=== PATIENT | male | born 1935 | race Caucasian/White ===

== ENCOUNTER 2016-05-09 16:18 | Inpatient (IN) | payer OTHER ==
[2016-05-09] MEDS ORDERED: OXYCODONE/APAP 5/325 TAB PO PRN (17:30)
[2016-05-09] MEDS ORDERED: SENNOSIDES 17.6 MG/10 ML UDL PO PRN (17:31)
[2016-05-09] MEDS: AMOXICILLIN/CLAVULANATE POT 875/125 MG TAB PO SCH (19:51)
[2016-05-09] MEDS: BACITRACIN OINTMENT 1 PACKET TP SCH (19:52)
[2016-05-09] MEDS: FAMOTIDINE 20 MG TAB PO SCH (19:52)
[2016-05-09] MEDS: MELATONIN 3 MG TAB PO SCH (19:52)
--- NOTE | 2016-05-09 20:31 | GHP ---
[f rep st] HISTORY AND PHYSICAL DATE OF ADMISSION: 05/09/2016 Referring Physician: Dr. Del Cid TIME OF EVALUATION: 1740 REFERRING FACILITY: [facility] CONSULTING PHYSICIANS: There were consultations with Trauma Surgery, Neurosurgery, Intensive Care, and Otolaryngology. REHABILITATION DIAGNOSIS: Debility status post fall with C1 and C2 cervical fractures and a nasal fracture. IMPAIRMENT GROUP: 8.9. ETIOLOGIC DIAGNOSIS: Other orthopedic. DATE OF ONSET: 05/05/2016 HISTORY OF PRESENT ILLNESS: Mr. Burnham tripped over a curb and fell on his face on 05/05/2016. He did not recall loss of consciousness. He was taken to [facility] where he was diagnosed with C1 and C2 cervical fractures, a nasal fracture, and multiple facial lacerations. He was evaluated by Neurosurgery and was treated with a cervical collar. His cervical fractures did not require surgery. In the hospital, he was found to have right hand weakness, but imaging did not show any cord compression. He had confusion and agitation, which improved with decrease of sedating medications. He had aspiration, and video fluoroscopic swallow study was done on 05/08, which was positive for moderate to severe dysphagia. Facial lacerations were sutured, and the sutures are to be removed on 05/11/2016. The cervical collar is to remain for 6 weeks. He is to follow up with neurosurgeon, Dr. Mann, after 6 weeks. Regarding his nasal fracture, he had evaluation by Otolaryngology. Oral antibiotics for 1 week were recommended, and he is to follow up with rn endocrinology, Dr. Kearney, in 1 week or approximately May 16, 2016. As well as delirium, he was noted to have difficulty with word finding, which has been a chronic problem for some time. OTHER STUDIES AND LABS DURING HIS HOSPITALIZATION: Renal function and electrolytes were within normal limits. Hematology showed a normal CBC on the date of admission, and the next day, 05/06/2016, he had mild anemia with a hemoglobin of 12.8 and hematocrit of 37.7. Additionally, there was thrombocytopenia with a platelet count of 141. Coagulation studies revealed a normal PT and PTT. PRECAUTIONS: He is a fall risk and he has aspiration precautions. ACTIVE COMORBIDITIES: He has the tier 2 comorbidity of dysphagia. Otherwise, there are no active tier 1, tier 2, or tier 3 comorbidities. PAST MEDICAL HISTORY: 1. Dementia. 2. Hypothyroidism. 3. Central and obstructive sleep apnea, for which he had been using it a CPAP machine for approximately 10 days prior to his accident. PAST SURGICAL HISTORY: He has had cataract surgery. MEDICATIONS: Prior to admission: 1. [place] Thyroid 45 mg daily. 2. Cognitex supplement containing phosphatidylserine. 3. Red yeast rice extract. 4. [place]-3 fatty acid supplement. 5. Niacin 750 mg p.o. daily. Admission medications: 1. [place] Thyroid 45 mg p.o. daily. 2. Amoxicillin/clavulanate 875 mg p.o. b.i.d. 3. Bacitracin ointment b.i.d. to sutured lacerations. 4. [place]-3 fatty acids 1000 mg p.o. daily. 5. Enoxaparin 40 mg subcutaneous daily. 6. Niacin 750 mg p.o. daily. 7. Famotidine 20 mg p.o. b.i.d. 8. Oxycodone/acetaminophen 1-2 tabs p.o. q.6 hours p.r.n. 9. Senna/docusate 1 p.o. b.i.d. p.r.n. ALLERGIES: No known drug allergies. FAMILY HISTORY: He reports that his father had Alzheimer disease. PSYCHOSOCIAL HISTORY: He is . He lives with his . 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 He is a nonsmoker and a nondrinker. He and his split their time between [place] and [facility] in [place]. REVIEW OF SYSTEMS: He reports he has some pain, but it is not particularly severe at present. He reports that he had approximately a 20-pound weight loss 2 years ago when he had shingles. He has gained some weight back but has not been able to get above 122 pounds. His previous weight was 138.He is perseverative on events that happened at the [facility] where he felt he was poorly cared for, and he reports that he had visual hallucinations of people who were not in the room. These were startling but not frightening or otherwise distressing. He was aware that these people he was seeing were not really there. He currently is not experiencing visual hallucinations. He reports that he is hungry. He denies nausea, vomiting, constipation, or diarrhea. He reports that he was over-treated with a laxative and then did not get attention from nursing soon enough to transfer him to the bathroom, and he was upset about this. He denies cough or dyspnea. He denies chest pain or palpitations. He denies skin rash or skin breakdown. He denies joint pain or joint swelling. Other than that, a 10-point review of systems is negative. PHYSICAL EXAM: VITAL SIGNS: From this morning and in the acute care hospital, blood pressure was 131/61, heart rate 74, respiratory rate 16, oxygen saturation 96% on room air, temperature 36.8 degrees centigrade. His weight was 55.5 kg for a body mass index of 19.2. GENERAL: This is a thin elderly man who appears his chronologic age, cooperative and in no acute distress. HEENT: He has had obvious trauma to the bridge of his nose with leftward deviation. He has several eschars and sutured lacerations on his face. Extraocular movements are intact. He has anisocoria on the right. Left pupil is round and reactive. Mucous membranes are moist. He has several missing teeth, but dentition is otherwise in good condition. NECK: In the cervical collar, otherwise appears to be supple. HEART: Regular rate and rhythm with no murmurs, rubs, or gallops. LUNGS: Clear to auscultation bilaterally. ABDOMEN: Soft, nontender, and nondistended with normoactive bowel sounds and no hepatosplenomegaly. EXTREMITIES: There is no cyanosis, clubbing, or edema. Radial and dorsalis pedis pulses are 2+ bilaterally. NEUROLOGIC: He is alert. He is oriented to his general situation and location. He is disoriented to the date, reporting today's date as March 27. He does not retain reorientation after some distraction. Speech is fluent, with word finding difficulties and hypophonation. Cranial nerves 2-12 are grossly intact. Sensation is intact to light touch. There is no weakness. Handgrips are equal. CURRENT LEVEL OF FUNCTION: Per the pre-admission screen, regarding diet, feeding, and swallowing, he was on a nectar-thick liquid diet to be fed liquids via teaspoon, limiting bite size, and monitoring for signs and symptoms of aspiration. Regarding grooming, he required assistance. For dressing, he required setup. For lower body, he required moderate assistance. For toileting , he required assistance. For bladder and bowel, he was noted to be continent. Regarding bed mobility, he required standby assistance with the head of the bed elevated. Transfers were accomplished with contact guard of 2 people using a gait belt for safety. He was minimally retropulsive requiring the assistance of 2 to remain standing. For balance, he required contact guard to minimal assistance. Endurance was fair. He was able to ambulate 700 feet with contact guard to minimal assistance of 2 using no device, needed verbal cuing to slow down. He had loss of balance on turns requiring minimal assistance of 2 and verbal cues to scan the environment to locate his room. He was unable to locate his room without maximal assistance. Regarding communication, he was noted to have garbled speech and decreased phonation. Cognition was impaired in the areas of attention, concentration, insight and judgment, new learning, safety awareness, sequencing, and organization. Occupational Therapy found a large left visual field cut. ASSESSMENT AND PLAN: The patient is an 80-year-old man with pre-existing dementia and sleep apnea who suffered a fall on 05/05/2016 with a nasal fracture and fractures of cervical vertebrae, C1 and C2. The cervical fractures are being treated with a hard cervical collar for 6 weeks. Regarding the nasal fracture, he is to follow up with Otolaryngology to consider further treatment after another week to allow swelling to go down. His hospital course was complicated by pain and delirium. He has been stabilized and has had improvement in his delirium with reduction of sedating medications. He is appropriate for inpatient rehabilitation. He will benefit from physical and occupational therapy to optimize his mobility and independence with activities of daily living. He will benefit from speech and language pathology regarding dysphagia and aspiration and regarding his cognitive status. Additionally, he will need nursing care regarding wound healing, pain management , bowel and bladder, and fall risk, and medical care regarding pain management, encephalopathy, risk for aspiration pneumonia, anemia, and deep venous thrombosis prophylaxis. His goal is to go home with his and supportive services. For a safe discharge, he will need to achieve independence with eating, grooming, and bed mobility. He will need to have modified independence for transfers and supervision to modified independence level for bathing and dressing. He will need to be able to ambulate household distances with the least restrictive device and negotiate stairs with supervision. His diet will be advanced to the least restrictive diet. He will receive therapy with physical therapy, occupational therapy, and speech and language pathology for 1 hour per day for each discipline on 5-7 days per week. His expected duration of stay is 7-10 days. It is anticipated that after discharge he will likely continue to benefit from home health services, including occupational therapy and physical therapy. ASSESSMENT AND PLAN: 1. Debility status post fall with C1 and C2 cervical fractures and a nasal fracture. Physical and occupational therapy to optimize his mobility and activities of daily living. 2. Underlying dementia and delirium in the hospital, as well as dysphagia, to be assessed and treated by Speech and Language Pathology. 3. Pain management. Continue oxycodone/acetaminophen. Will increase the frequency from q.6 hours as ordered out of the hospital to q.4 hours on an as- needed basis. He will be assessed for adequate pain control. 4. Status post nasal fracture. He has been prescribed amoxicillin/clavulanate , which will be continued through May 14, 2016, and he will follow up with Otolaryngology in the first week of May. 5. Nutritional risk, due to dysphagia. His diet is restricted to nectar-thick liquids by teaspoon only. Counter Attendant will be consulted and he will be weighed daily. Hydration status will be monitored with consideration of IV hydration should he appear dehydrated. 6. Central and obstructive sleep apnea. He cannot use a CPAP mask with his nasal fracture. He will have oxygen overnight. 7. Hypothyroidism. Continue [place] Thyroid. 8. Deep venous thrombosis prophylaxis. He is high risk, and enoxaparin subcutaneous 40 mg daily will be continued. /[id number]/MODL MTDD
[2016-05-10] MEDS: OXYCODONE/APAP 5/325 TAB PO PRN ×3 (02:47→20:19)
[2016-05-10] MEDS: AMOXICILLIN/CLAVULANATE POT 875/125 MG TAB PO SCH ×2 (08:34→20:17)
[2016-05-10] MEDS: FAMOTIDINE 20 MG TAB PO SCH ×2 (08:35→20:18)
[2016-05-10] MEDS: NIACIN 500 MG TAB PO SCH (08:38)
[2016-05-10] MEDS: ENOXAPARIN 40 MG/0.4 ML SYR SC SCH (08:43)
[2016-05-10] MEDS: BACITRACIN OINTMENT 1 PACKET TP SCH ×2 (08:43→20:18)
[2016-05-10] MEDS: OMEGA-3 FATTY ACIDS 1,000 MG CAP PO SCH (08:43)
--- NOTE | 2016-05-10 08:50 | SOAPPROG ---
SOAP Progress Note Assessment/Plan: Assessment: 80 yo M with dementia who tripped over a curb and fell, suffering facial lacerations and fractures, and C1 and C2 cervical fractures, in hard cervical collar for 6 weeks: * Debility status post fall with C1 and C2 cervical fractures and a nasal fracture. Physical and occupational therapy to optimize his mobility and activities of daily living. * Underlying dementia and delirium in the hospital. Slept overnight; continue melatonin to regulate sleep-wake cycle. Continues to need sitter. Impulsive and disinhibited, with paranoia. Will strive to avoid medication ( anticonvulsant or antipsychotic) due to adverse side effects. Await assessment by CLIP RIVETER. * Dysphagia, severe, with diet texture limited to nectar-thick liquids my teaspoon. To be assessed and treated by Speech and Language Pathology. * Pain management. Continue oxycodone/acetaminophen q.4 hours on an as-needed basis. Used once overnight 05/09 - 05/10. Will add acetaminophen 650 mg Q 4 hr PRN for non-opiate option. * Status post nasal fracture. He has been prescribed amoxicillin/clavulanate, which will be continued through May 14, 2016, and he will follow up with Otolaryngology in the first week of May. * Nutritional risk. Due to dysphagia, his diet is restricted to nectar-thick liquids by teaspoon only. Automatic Steel Tie Adjuster will be consulted and he will be weighed daily. Hydration status will be monitored with consideration of IV hydration should he appear dehydrated. * Central and obstructive sleep apnea. He cannot use a CPAP mask with his nasal fracture. He will have oxygen overnight. * Hypothyroidism. Continue [place] Thyroid. * Deep venous thrombosis prophylaxis. He is high risk, and enoxaparin subcutaneous 40 mg daily will be continued. Follow-up with Neurosurgeon Dr. Mann 6 weeks after hospital discharge. approximately 06/20/16. PCP is Krystal Mclaughlin 05/10/16 09:57 Subjective: Slept most of the night but was awake at 0300 and called . Denies pain. No acute complaints but expresses paranoid ideation and is not clear that he is no longer at [facility] where he feels he was not treated well. Objective: Vital Signs Temp Pulse Resp BP Pulse Ox 36.4 C 64 16 130/77 H 96 05/10/16 07:28 05/10/16 07:28 05/10/16 07:28 05/10/16 07:28 05/10/16 07:28 05/09/16 05/10/16 05/11/16 05:59 05:59 05:59 Intake Total 170 240 Output Total 250 Balance -80 240 Physical Exam - Physical Exam General Appearance: WD/WN, alert, no apparent distress, thin Respiratory: normal breath sounds, No crackles, No rhonchi, No wheezing Cardiac/Chest: regular rate, rhythm, No edema Skin: normal color, warm/dry, other (Facial lacerations with eschar; sutures present, no dehiscence, erythema or drainage.) Neuro/Psych: no motor/sensory deficits, alert, disoriented to place, disoriented to time, other (Disinhibited and mildly agitated.) ICD10 Worksheet Patient Problems: Problems Problem Status Diagnosed C1 cervical fracture Acute C2 cervical fracture Acute Facial laceration Acute Fall Acute Open fracture nasal bone Acute
[2016-05-10] MEDS ORDERED: ACETAMINOPHEN 160 MG/5 ML UDCUP PO PRN ×2 (10:05→12:20)
[2016-05-10] MEDS: THYROID 60 MG TAB PO SCH (11:10)
[2016-05-10] MEDS: MELATONIN 3 MG TAB PO SCH (20:18)
[2016-05-11] MEDS: OXYCODONE/APAP 5/325 TAB PO PRN (02:49)
[2016-05-11] MEDS: AMOXICILLIN/CLAVULANATE POT 875/125 MG TAB PO SCH ×2 (08:28→21:14)
[2016-05-11] MEDS: OMEGA-3 FATTY ACIDS 1,000 MG CAP PO SCH (08:28)
[2016-05-11] MEDS: FAMOTIDINE 20 MG TAB PO SCH ×2 (08:32→21:13)
[2016-05-11] MEDS: NIACIN 500 MG TAB PO SCH (08:36)
[2016-05-11] MEDS: BACITRACIN OINTMENT 1 PACKET TP SCH ×2 (08:42→21:13)
[2016-05-11] MEDS: ENOXAPARIN 40 MG/0.4 ML SYR SC SCH (08:42)
[2016-05-11] MEDS: THYROID 60 MG TAB PO SCH (11:31)
--- NOTE | 2016-05-11 11:48 | SOAPPROG ---
SOAP Progress Note Assessment/Plan: Assessment: 80 yo M with dementia who tripped over a curb and fell, suffering facial lacerations/fractures, and C1-C2 cervical fractures, in hard cervical collar for 6 weeks: * Debility status post fall with C1 and C2 cervical fractures and a nasal fracture. Physical and occupational therapy to optimize his mobility and activities of daily living. * Underlying dementia and delirium in the hospital. Improving with decreased pain meds. Has wokenup at 3am for past 2 nights. denies pain. Admits to awarness of confusion. continue melatonin to regulate sleep-wake cycle. Continues to need sitter. Impulsive and disinhibited, with paranoia. Will strive to avoid medication (anticonvulsant or antipsychotic) due to adverse side effects. Await assessment by PRIMER CHARGER. * Dysphagia, severe, cont Speech and Language Pathology. * Pain management. Continue oxycodone/acetaminophen q.4 hours on an as-needed basis. Used once overnight 05/09 - 05/10, yet did not prevent sundowning. Will add acetaminophen 650 mg Q 4 hr PRN for non-opiate option. * Status post nasal fracture. He has been prescribed amoxicillin/clavulanate, which will be continued through May 14, 2016, follow up with Otolaryngology first week of May. * Nutritional risk. Due to dysphagia, his diet is restricted to nectar-thick liquids by teaspoon only. Tabulating Machine Mechanic will be consulted and he will be weighed daily. Hydration status will be monitored with consideration of IV hydration should he appear dehydrated. * Central and obstructive sleep apnea. He cannot use a CPAP mask with his nasal fracture. Cont oxygen overnight. * Hypothyroidism. Continue [place] Thyroid. * Deep venous thrombosis prophylaxis. at high risk, cont enoxaparin subcutaneous 40 mg daily. Follow-up with Neurosurgeon Dr. Mann 6 weeks after hospital discharge. approximately 06/20/16. PCP is Krystal Mclaughlin Plan: Cont Dr Broussard rehab treatment plan 05/11/16 11:44 Subjective: No new problems or C/O's per patient reports he is less confused and speech ;and language are clearer over past day. No F/C/CP/SOB/N/V/D/C Objective: Vital Signs Temp Pulse Resp BP Pulse Ox 36.8 C 55 L 16 143/85 H 97 05/11/16 07:13 05/11/16 07:30 05/11/16 07:13 05/11/16 07:13 05/11/16 07:13 05/10/16 05/11/16 05/12/16 05:59 05:59 05:59 Intake Total 170 1430 200 Output Total 250 Balance -80 1430 200 Physical Exam - Physical Exam General Appearance: alert, no apparent distress Neck: limited range of motion (in C-collar, will try Small Short collar for better fit) Respiratory: lungs clear Cardiac/Chest: regular rate, rhythm Skin: normal color, warm/dry, decubitus (no breakdown from c-collar) Extremities: No pedal edema, No calf tenderness Neuro/Psych: alert, cognition abnormalities (slow processing, severe word finding difficulties, good sense of humor.), other (no acute changes) ICD10 Worksheet Patient Problems: Problems Problem Status Diagnosed C1 cervical fracture Acute C2 cervical fracture Acute Facial laceration Acute Fall Acute Open fracture nasal bone Acute
[2016-05-11] MEDS ORDERED: ACETAMINOPHEN 325 MG TAB PO PRN (15:22)
[2016-05-11] MEDS: MELATONIN 3 MG TAB PO SCH (21:13)
[2016-05-12] MEDS: OXYCODONE/APAP 5/325 TAB PO PRN (02:53)
[2016-05-12] MEDS: AMOXICILLIN/CLAVULANATE POT 875/125 MG TAB PO SCH ×2 (08:53→20:35)
[2016-05-12] MEDS: FAMOTIDINE 20 MG TAB PO SCH ×2 (08:54→20:35)
[2016-05-12] MEDS: NIACIN 500 MG TAB PO SCH (08:57)
[2016-05-12] MEDS: OMEGA-3 FATTY ACIDS 1,000 MG CAP PO SCH (09:04)
[2016-05-12] MEDS: ENOXAPARIN 40 MG/0.4 ML SYR SC SCH (10:39)
[2016-05-12] MEDS: THYROID 60 MG TAB PO SCH (10:41)
[2016-05-12] MEDS: BACITRACIN OINTMENT 1 PACKET TP SCH ×2 (10:41→20:35)
--- NOTE | 2016-05-12 11:10 | SOAPPROG ---
SOAP Progress Note Assessment/Plan: Assessment: 80 yo M with dementia who tripped over a curb and fell, suffering facial lacerations/fractures, and C1-C2 cervical fractures, in hard cervical collar for 6 weeks: * Debility status post fall with C1 and C2 cervical fractures and a nasal fracture. Physical and occupational therapy to optimize his mobility and activities of daily living. * Underlying dementia and delirium in the hospital. Continuing to improve daily with decreased pain meds. Awakens at HS to toilet, and notably confused, He admits to awareness of confusion, but denies pain. continue melatonin to regulate sleep-wake cycle. Continues to need sitter. Impulsivity and disinhibited, with paranoia are improving. Cont to strive to avoid medication ( anticonvulsant or antipsychotic) due to adverse side effects. Await assessment by REINFORCED STEEL PLACING SUPERVISOR. * Dysphagia, severe, cont Speech and Language Pathology. * Pain management. Continue oxycodone/acetaminophen q.4 hours on an as-needed basis. Used once overnight 05/09 - 05/10, yet did not prevent owning. Will add acetaminophen 650 mg Q 4 hr PRN for non-opiate option. * Status post nasal fracture. He has been prescribed amoxicillin/clavulanate, which will be continued through May 14, 2016, follow up with Otolaryngology first week of May. * Nutritional risk. Due to dysphagia, his diet is restricted to nectar-thick liquids by teaspoon only. Powerbuilder will be consulted and he will be weighed daily. Hydration status will be monitored with consideration of IV hydration should he appear dehydrated. * Central and obstructive sleep apnea. He cannot use a CPAP mask with his nasal fracture. Cont oxygen overnight. * Hypothyroidism. Continue [place] Thyroid. * Deep venous thrombosis prophylaxis. at high risk, cont enoxaparin subcutaneous 40 mg daily. Follow-up with Neurosurgeon Dr. Mann 6 weeks after hospital discharge. approximately 06/20/16. PCP is Krystal Mclaughlin Plan: Cont Dr Broussard rehab treatment plan 05/12/16 11:06 Subjective: No new problems or C/O's Medically stable, VSS No F/C/CP/SOB/N/V/D/C Slept better last night Still with language of confusion, word finding difficulties and slow processing speed, yet noticeably better than yesterday Objective: Vital Signs Temp Pulse Resp BP Pulse Ox 36.7 C 65 16 146/77 H 94 05/12/16 06:27 05/12/16 06:27 05/12/16 06:27 05/12/16 06:27 05/12/16 06:27 05/11/16 05/12/16 05/13/16 05:59 05:59 05:59 Intake Total 1430 1160 708 Balance 1430 1160 708 Physical Exam - Physical Exam General Appearance: alert, no apparent distress Neck: limited range of motion (c-collar) Respiratory: lungs clear Cardiac/Chest: regular rate, rhythm Skin: normal color, warm/dry Extremities: No pedal edema, No calf tenderness Neuro/Psych: alert, normal mood/affect, motor weakness, cognition abnormalities , speech abnormalities, other (no gross changes) ICD10 Worksheet Patient Problems: Problems Problem Status Diagnosed C1 cervical fracture Acute C2 cervical fracture Acute Facial laceration Acute Fall Acute Open fracture nasal bone Acute
[2016-05-12] MEDS: NYSTATIN SUSP 500000 UNIT/5 ML UDCUP PO SCH ×2 (16:49→20:59)
[2016-05-12] MEDS: MELATONIN 3 MG TAB PO SCH (20:35)
[2016-05-13] MEDS: ENOXAPARIN 40 MG/0.4 ML SYR SC SCH (09:19)
[2016-05-13] MEDS: AMOXICILLIN/CLAVULANATE POT 875/125 MG TAB PO SCH ×2 (09:19→20:44)
[2016-05-13] MEDS: BACITRACIN OINTMENT 1 PACKET TP SCH ×2 (09:19→20:51)
[2016-05-13] MEDS: FAMOTIDINE 20 MG TAB PO SCH ×2 (09:20→20:51)
[2016-05-13] MEDS: NIACIN 500 MG TAB PO SCH ×3 (09:20→20:50)
[2016-05-13] MEDS: OMEGA-3 FATTY ACIDS 1,000 MG CAP PO SCH (09:20)
[2016-05-13] MEDS: NYSTATIN SUSP 500000 UNIT/5 ML UDCUP PO SCH ×3 (09:20→20:50)
[2016-05-13] MEDS: THYROID 60 MG TAB PO SCH (09:21)
--- NOTE | 2016-05-13 15:56 | PDOREHIP ---
Admission [facility] - Admission - 3 Day Assessment Period Admission Date/Day 1: 05/09/16 Day 2: 05/10/16 Day 3: 05/11/16 - Active Diagnoses Comorbidities and Co-existing Conditions at Admission: [id number]. None of the Above - Skin Conditions Unhealed Pressure Ulcer (1 or more/Stage 1 or >)-Admission: 0. No
--- NOTE | 2016-05-13 16:03 | SOAPPROG ---
SOAP Progress Note Assessment/Plan: Assessment: 80 yo M with dementia who tripped over a curb and fell, suffering facial lacerations and fractures, and C1 and C2 cervical fractures, in hard cervical collar for 6 weeks: * Debility status post fall with C1 and C2 cervical fractures and a nasal fracture. Initial FIM 80 on 05/13/16. Walked 300' with trekkiing,poles, climbed 12 stairs, supervision level for ADLs except min A for toileting and bathing. Cues for cervical precautions. Impulsive and distractible; occasional retropulsive LOB. Continue Physical and occupational therapy to optimize his mobility and activities of daily living. * Underlying dementia and delirium in the hospital. Continue melatonin to regulate sleep-wake cycle. No longer needing sitter. Continue CREDIT RATING CHECKER. * Dysphagia, severe, with diet texture limited to nectar-thick liquids my teaspoon. Repepat VFSS 05/14/16. Continue CREDIT RATING CHECKER. * Pain management. Adequate with acetaminophen 650 mg Q 4 hr PRN. * Status post nasal fracture. He has been prescribed amoxicillin/clavulanate, which will be continued through May 14, 2016, and he will follow up with Otolaryngology in the first week of May. * Nutritional risk. Due to dysphagia, his diet is restricted to nectar-thick liquids by teaspoon only. Licensed Clinical Psychologist assisting; taking adequate calories and protein.. * Central and obstructive sleep apnea. He cannot use a CPAP mask with his nasal fracture. He will have oxygen overnight. * Hypothyroidism. Continue [place] Thyroid. * Deep venous thrombosis prophylaxis. Mobility much improved. Will d/c enoxaparin. Follow-up with Neurosurgeon Dr. Mann 6 weeks after hospital discharge. approximately 06/20/16. PCP is Krystal Mclaughlin Attended staffing, 15 min. D/W case mgmt, nursing, PT, OT, CREDIT RATING CHECKER, butter wrapper. Tentative discharge date of 05/16/16. Home PT, OT, CREDIT RATING CHECKER. 05/13/16 16:03 Subjective: No complaints. Not in pain. Good appetite. No f/c, cough/dyspnea, n/v/d/c. Objective: Vital Signs Temp Pulse Resp BP Pulse Ox 36.4 C 55 L 16 141/70 H 94 05/13/16 05:14 05/13/16 05:14 05/13/16 05:14 05/13/16 05:14 05/13/16 05:14 05/12/16 05/13/16 05/14/16 05:59 05:59 05:59 Intake Total 1160 1828 1140 Balance 1160 1828 1140 - Time Spent With Patient Time Spent With Patient: Greater than 35 minutes floor time today, including more than 50% of time in coordination of care during staffing, and counseling patient. Physical Exam - Physical Exam General Appearance: WD/WN, alert, no apparent distress, thin Respiratory: normal breath sounds, No crackles, No rhonchi, No wheezing Cardiac/Chest: regular rate, rhythm, No edema Skin: normal color, warm/dry Neuro/Psych: alert, normal mood/affect ICD10 Worksheet Patient Problems: Problems Problem Status Diagnosed C1 cervical fracture Acute C2 cervical fracture Acute Facial laceration Acute Fall Acute Open fracture nasal bone Acute
[2016-05-13] MEDS: MELATONIN 3 MG TAB PO SCH (20:44)
[2016-05-14 07:12] VITALS: RESP 18
[2016-05-14] MEDS: NYSTATIN SUSP 500000 UNIT/5 ML UDCUP PO SCH ×3 (09:10→20:22)
[2016-05-14] MEDS: BACITRACIN OINTMENT 1 PACKET TP SCH ×2 (09:10→20:22)
[2016-05-14] MEDS: AMOXICILLIN/CLAVULANATE POT 875/125 MG TAB PO SCH (09:10)
[2016-05-14] MEDS: FAMOTIDINE 20 MG TAB PO SCH ×2 (09:11→20:22)
[2016-05-14] MEDS: THYROID 60 MG TAB PO SCH (09:20)
[2016-05-14] MEDS: OMEGA-3 FATTY ACIDS 1,000 MG CAP PO SCH (09:25)
--- NOTE | 2016-05-14 11:02 | SOAPPROG ---
SOAP Progress Note Assessment/Plan: Assessment: 80 yo M with dementia who tripped over a curb and fell on 05/06/16, suffering facial lacerations and fractures, and C1 and C2 cervical fractures, in hard cervical collar for 6 weeks (through 06/17/16?): * Debility status post fall with C1 and C2 cervical fractures and a nasal fracture. Initial FIM 80 on 05/13/16. Walked 300' with trekkiing,poles, climbed 12 stairs, supervision level for ADLs except min A for toileting and bathing. Cues for cervical precautions. Impulsive and distractible; occasional retropulsive LOB. Continue Physical and occupational therapy to optimize his mobility and activities of daily living. * Underlying dementia and delirium in the hospital. Continue melatonin to regulate sleep-wake cycle. No longer needing sitter. Continue CURBSTONE SETTER. * Dysphagia, severe, with diet texture limited to nectar-thick liquids by teaspoon. Repeat VFSS 05/14/16. Continue CURBSTONE SETTER. * Pain management. Adequate with acetaminophen 650 mg Q 4 hr PRN. No oxycodone /acetaminophen use since 05/12/16. * Status post nasal fracture. He has been prescribed amoxicillin/clavulanate, which will be continued through May 14, 2016, and he will follow up with Otolaryngology in the first week of May. * Nutritional risk. Due to dysphagia, his diet is restricted to nectar-thick liquids by teaspoon only. Phlebotomy Technologist assisting; taking adequate calories and protein.. * Central and obstructive sleep apnea. He cannot use a CPAP mask with his nasal fracture. He will have oxygen overnight. * Hypothyroidism. Continue [place] Thyroid. * Deep venous thrombosis prophylaxis. Mobility much improved. Will d/c enoxaparin. Follow-up with Neurosurgeon Dr. Mann 6 weeks after hospital discharge. approximately 06/20/16. PCP is Krystal Mclaughlin Tentative discharge date of 05/16/16. Home PT, OT, CURBSTONE SETTER. Discussion with patient 05/14/16 re goals of safety, maximal functional independence, and advancing swallow. Encouraged patience. 05/14/16 11:02 Subjective: Feels impatient about staying in rehabilitation unit; wants to go home. Denies pain, f/c, dyspnea, cough. Reports frequent bowel movements, no n/v. Objective: Vital Signs Temp Pulse Resp BP Pulse Ox 36.7 C 84 18 146/74 H 97 05/14/16 06:00 05/14/16 06:00 05/14/16 06:00 05/14/16 06:00 05/14/16 06:00 05/13/16 05/14/16 05/15/16 05:59 05:59 05:59 Intake Total 1828 1560 Balance 1828 1560 Physical Exam - Physical Exam General Appearance: WD/WN, alert, no apparent distress, thin Respiratory: No respiratory distress, No accessory muscle use Cardiac/Chest: No edema Skin: normal color, warm/dry Neuro/Psych: no motor/sensory deficits, alert, normal mood/affect, No abnormal gait ICD10 Worksheet Patient Problems: Problems Problem Status Diagnosed C1 cervical fracture Acute C2 cervical fracture Acute Facial laceration Acute Fall Acute Open fracture nasal bone Acute
--- NOTE | 2016-05-14 15:14 | DX ---
Video Esophagogram with Speech Therapy Clinical History: 80-year-old male who suffered a fall and sustained a C1-C2 fracture and presents fo r evaluation of dysphagia. Technique: The patient was evaluated in the lateral projection and observed in conjunction with (Charis chisholm) the speech therapist while consuming thin barium, applesauce coated with barium, and a cracker coa sheri with barium. Fluoroscopy Time: 1.9 minutes, and exposure dose of 5.90 mGy. Comparison Study: Video esophagram with speech, dated May 08, 2016. Findings: There is oropharyngeal propulsion of the bolus into the hypopharynx with mild base of tongu e weakness and some incomplete epiglottic inversion. Residue in the hypopharynx (more so in the hansen cula than the piriform sinuses) is observed, although, does clear when transitioning from liquids to solids. There was no evidence of kody aspiration, although with larger volumes of fluid, there was t race vestibular penetration. There was no upper esophageal sphincter dysfunction. Impression: [id number] oropharyngeal dysphagia with no evidence of aspiration, but improving fr om May 08, 2016, when he had [id number] oral pharyngeal dysphagia and aspiration with th in liquids. Please also refer to the speech therapist's separate assessments and specific recommendations for fol low up.
[2016-05-14] MEDS: NIACIN 500 MG TAB PO SCH (20:22)
[2016-05-14] MEDS: MELATONIN 3 MG TAB PO SCH (20:22)
[2016-05-15] MEDS: THYROID 60 MG TAB PO SCH (05:56)
[2016-05-15] MEDS: BACITRACIN OINTMENT 1 PACKET TP SCH ×2 (09:06→20:00)
[2016-05-15] MEDS: NYSTATIN SUSP 500000 UNIT/5 ML UDCUP PO SCH ×3 (09:06→20:01)
[2016-05-15] MEDS: FAMOTIDINE 20 MG TAB PO SCH ×2 (09:06→20:01)
[2016-05-15] MEDS: OMEGA-3 FATTY ACIDS 1,000 MG CAP PO SCH (09:06)
--- NOTE | 2016-05-15 13:34 | SOAPPROG ---
SOAP Progress Note Assessment/Plan: Assessment: 80 yo M with dementia who tripped over a curb and fell on 05/06/16, suffering facial lacerations and fractures, and C1 and C2 cervical fractures, in hard cervical collar for 6 weeks (through 06/17/16?): * Debility status post fall with C1 and C2 cervical fractures and a nasal fracture. Initial FIM 80 on 05/13/16. Walked 300' with trekkiing,poles, climbed 12 stairs, supervision level for ADLs except min A for toileting and bathing. Cues for cervical precautions. Impulsive and distractible; occasional retropulsive LOB. Continue Physical and occupational therapy to optimize his mobility and activities of daily living. * Underlying dementia and delirium in the hospital. Continue melatonin to regulate sleep-wake cycle. No longer needing sitter. Continue CROWN AND BRIDGE TECHNICIAN. * Dysphagia, improving, advanced to pureed & thin liquids from nectar-thick liquids by teaspoon after VFSS 05/14/16. Continue CROWN AND BRIDGE TECHNICIAN. * Pain management. Adequate with acetaminophen 650 mg Q 4 hr PRN. No oxycodone /acetaminophen use since 05/12/16. * Status post nasal fracture. He has been prescribed amoxicillin/clavulanate, which completed May 14, 2016, and he will follow up with Otolaryngology. * Nutritional risk. Due to dysphagia, his diet is restricted to nectar-thick liquids by teaspoon only. Ladle Puller assisting; taking adequate calories and protein.. * Central and obstructive sleep apnea. He cannot use a CPAP mask with his nasal fracture. He will have oxygen overnight. * Hypothyroidism. Continue [place] Thyroid. * Deep venous thrombosis prophylaxis. Mobility much improved. Will d/c enoxaparin. Follow-up with Neurosurgeon Dr. Mann 6 weeks after hospital discharge. approximately 06/20/16. PCP is Krystal Mclaughlin Discharge date tomorrow 05/16/16. Home PT, OT, CROWN AND BRIDGE TECHNICIAN. Attended family meeting, 30 min. present. D/W case mgmt, nursing, PT, OT , CROWN AND BRIDGE TECHNICIAN, re care needs at home. 05/15/16 13:31 Subjective: No complaints. Denies pain, f/c, cough, dyspnea, n/v/c/d. Objective: Vital Signs Temp Pulse Resp BP Pulse Ox 36.5 C 55 L 18 130/69 H 95 05/15/16 06:00 05/15/16 06:00 05/15/16 06:00 05/15/16 06:00 05/15/16 06:00 05/14/16 05/15/16 05/16/16 05:59 05:59 05:59 Intake Total 9843 303 0431 Balance 3445 185 4660 - Time Spent With Patient Time Spent With Patient: Greater than 35 minutes floor time today, including more than 50% or time in coordination of care and counseling during family meeting. Physical Exam - Physical Exam General Appearance: WD/WN, alert, mild distress, thin Respiratory: normal breath sounds, No crackles, No rhonchi, No wheezing Cardiac/Chest: regular rate, rhythm, No edema Skin: normal color, warm/dry Neuro/Psych: no motor/sensory deficits, alert, normal mood/affect ICD10 Worksheet Patient Problems: Problems Problem Status Diagnosed C1 cervical fracture Acute C2 cervical fracture Acute Facial laceration Acute Fall Acute Open fracture nasal bone Acute
[2016-05-15] MEDS: MELATONIN 3 MG TAB PO SCH (20:01)
[2016-05-15] MEDS: NIACIN 500 MG TAB PO SCH (20:01)
[2016-05-16] MEDS: THYROID 60 MG TAB PO SCH (05:03)
[2016-05-16 05:31] VITALS: BP 138/69; PULSE 55; TEMP 97.7; O2SAT 98
[2016-05-16] MEDS: FAMOTIDINE 20 MG TAB PO SCH (08:35)
[2016-05-16] MEDS: OMEGA-3 FATTY ACIDS 1,000 MG CAP PO SCH (08:35)
[2016-05-16] MEDS: NYSTATIN SUSP 500000 UNIT/5 ML UDCUP PO SCH (08:35)
[2016-05-16] MEDS: BACITRACIN OINTMENT 1 PACKET TP SCH (08:35)
--- NOTE | 2016-05-16 14:36 | PDOREHIP ---
Admission [facility] - Admission - 3 Day Assessment Period Admission Date/Day 1: 05/09/16 Day 2: 05/10/16 Day 3: 05/11/16 Discharge [facility] - Discharge - 3 Day Assessment Period 2 Days Prior to Anticipated Discharge Date: 05/14/16 1 Day Prior to Anticipated Discharge Date: 05/15/16 Anticipated Discharge Date: 05/16/16 - Discharge Skin Conditions Unhealed Pressure Ulcer (1 or more/Stage 1 or >)-Discharge: 0. No - Healed Pressure Ulcer(s) Pressure Ulcer-Present on Admit and Healed on Discharge: No # Stage 1 Pressure Ulcers Present on Admit and Healed on DC: 0 # Stage 2 Pressure Ulcers Present on Admit and Healed on DC: 0 # Stage 3 Pressure Ulcers Present on Admit and Healed on DC: 0 # Stage 4 Pressure Ulcers Present on Admit and Healed on DC: 0
--- NOTE | 2016-05-16 21:18 | GDS ---
[f rep st] DISCHARGE SUMMARY ADMITTING DIAGNOSIS: Debility status post fall with C1 and C2 vertebral fractures and a nasal fracture. DISCHARGE DIAGNOSES: 1. Debility status post fall with C1 and C2 cervical fractures and a nasal fracture. 2. Dementia. 3. Delirium. 4. Dysphagia. CONSULTATIONS: There were none. PROCEDURES: There were none. COMPLICATIONS: There were none. HISTORY AND HOSPITAL COURSE: Mr. Burnham suffered a fall on 05/05/2016 in which he tripped over a curb. He had fractures of the C1 and C2 cervical vertebrae, as well as a nasal fracture and facial lacerations. Facial lacerations were repaired in the emergency department. The vertebral fractures were treated with a hard cervical collar for 6 weeks. Regarding the nasal fracture, he was seen by ENT and placed on antibiotics through 05/14/2016. In the hospital, he had encephalopathy with confusion and agitation. He also had aspiration and a video fluoroscopic swallow study showed fqdpobch-bl-ogaksz dysphagia. He did well in rehabilitation. His encephalopathy improved. He was sleeping at night and awake during the day. He ceased to be agitated. He continued to have cognitive impairment noted consistent with an underlying dementia. He improved functionally. On 05/13/2016, his Functional [place] Measure was 80, which is consistent with assisted living level of care. He was able to walk 300 feet with trekking poles and climb 12 stairs. He was at supervision level for activities of daily living, except required minimal assistance for toileting and bathing, and cues for cervical precautions. His dysphagia improved. Initially, his diet texture was limited to nectar- thick liquids by teaspoon only. There was a repeat video fluoroscopic swallow study done on 05/14/2016, after which his diet textures were advanced to pureed food and thin liquids. Regarding pain management, he was initially using oxycodone/acetaminophen, but he did not need this after May 12, 2016, and was treated with only acetaminophen. He had a history of central and obstructive sleep apnea. He had been using a CPAP prior to his hospitalization. He could not use the CPAP due to his nasal fracture and he was treated with overnight oxygen. There were no labs or studies done during his rehabilitation stay. DISCHARGE PHYSICAL EXAM: VITAL SIGNS: Blood pressure is 138/69, heart rate is 55, respiratory rate is 18, oxygen saturation is 98% on 2 L and was 96% on room air (the 2 L were from his overnight oxygen treatment), his temperature was 36.5 degrees centigrade. GENERAL: This is a thin man. Alert, cooperative, and in no acute distress. Ambulating in the gamez using trekking poles. HEENT: He has a clearly deviated nasal bridge of his nose to the right. Lacerations are healed on his face. RESPIRATORY: There is no respiratory distress or tachypnea. NEUROLOGIC: He is alert and oriented x3. His gait is normal with trekking poles. He is noted to have some impulsivity. There is no focal weakness. DISCHARGE PLAN: 1. Condition upon discharge is good. 2. Activity is ad ben, but he requires supervision for safety with mobility. 3. Diet is a regular diet with pureed food and nectar-thick liquids. DATE OF NEXT APPOINTMENT: 1. He will follow up with ENT with photogrammetric compilation specialist Dr. Miri Kearney on . 2. He will follow up with Neurosurgery, Dr. Mann, in the first week of June. MEDICATIONS AT DISCHARGE: 1. Niacin 750 mg p.o. daily. 2. Bacitracin ointment 1 application topically to facial lacerations b.i.d. 3. [place]-3 fatty acids 1000 mg p.o. daily. 4. [place] Thyroid 45 mg p.o. daily. 5. Acetaminophen 325 to 650 mg p.o. q.4 hours p.r.n.. ISSUES TO BE ADDRESSED AT FOLLOWUP: 1. Nasal fracture. To have follow up with Dr. Kearney. 2. Vertebral fractures. He is to wear his hard collar for a total of 6 weeks and will follow up with neurosurgeon Dr. Mann in the first week of June. 3. Functional status. He will continue physical and occupational therapy at home and can follow up with his primary care provider as well regarding his functional status. 4. Dysphagia. He will continue to have speech therapy at home and it is hoped that his diet texture can be advanced to the least restrictive texture. 5. Dementia. He can follow up with his primary care provider and he will have supervision by his regarding mobility and activities of daily living. /[id number]/MODL MTDD
--- NOTE | 2016-05-19 15:18 | PDOREHIP ---
Admission [facility] - Admission - 3 Day Assessment Period Admission Date/Day 1: 05/09/16 Day 2: 05/10/16 Day 3: 05/11/16 - Active Diagnoses Comorbidities and Co-existing Conditions at Admission: [id number]. None of the Above - Skin Conditions Unhealed Pressure Ulcer (1 or more/Stage 1 or >)-Admission: 0. No (Late entry) Discharge [facility] - Discharge - 3 Day Assessment Period 2 Days Prior to Anticipated Discharge Date: 05/14/16 1 Day Prior to Anticipated Discharge Date: 05/15/16 Anticipated Discharge Date: 05/16/16
== END 2016-05-16 13:30 | disposition home health service (06) | DRG 560 ==
LOC: BREH 16:18
PROVIDERS: ADMIT Internal Medicine; ATTEND Internal Medicine
PROC: F0636ZZ Communicative/Cognitive Integration Skills Treatment of Neurological System - Whole Body (ICD-10-PCS; principal; 2016-05-09)
PROC: F08Z7ZZ Vocational Activities and Functional Community or Work Reintegration Skills Treatment (ICD-10-PCS; principal; 2016-05-09)
PROC: F07M3ZZ Motor Function Treatment of Musculoskeletal System - Whole Body (ICD-10-PCS; principal; 2016-05-09)
DX: S12.091D Other nondisplaced fracture of first cervical vertebra, subsequent encounter for fracture with routine healing (principal); S12.111D Posterior displaced Type II dens fracture, subsequent encounter for fracture with routine healing; S02.2XXD Fracture of nasal bones, subsequent encounter for fracture with routine healing; J34.2 Deviated nasal septum; W01.0XXD Fall on same level from slipping, tripping and stumbling without subsequent striking against object, subsequent encounter; Y92.480 Sidewalk as the place of occurrence of the external cause; Y93.02 Activity, running; Y99.8 Other external cause status; F05 Delirium due to known physiological condition; F03.90 Unspecified dementia, unspecified severity, without behavioral disturbance, psychotic disturbance, mood disturbance, and anxiety; R13.10 Dysphagia, unspecified; E03.9 Hypothyroidism, unspecified; G47.33 Obstructive sleep apnea (adult) (pediatric)
CPT/HCPCS: 92507-GN; 92522-GN; 92526; 92610; 97001-GP; 97003-GO; 97110-GO; 97110-GP; 97112-GP; 97116-GP; 97530-GO; 97535-GO; 99366-GO; J1650

== ENCOUNTER → 2016-06-07 | Outpatient (CLI) | payer OTHER ==
--- NOTE | 2016-06-07 10:09 | DX ---
Cervical Spine, Four Views Indication: C1 and C2 fractures. Follow up. Technique: Upright AP, dens, lateral, and swimmer's views. Comparison: Cervical spine series dated May 09, 2016, and CT cervical spine dated May 05. Findings: The 4 mm posterior displacement of the dens fragment relative to the C2 body and minimally displaced posterior C1 ring fracture are unchanged in configuration. Minimal bridging callus is deve loping posteriorly along the ring of C1. No appreciable callus at the dens fracture. Severe degenerative disk disease extending from C3-C4 to C5-C6 and grade 1 spondylolisthesis at C2-C3 , C3-C4, and C5-C6 are all unchanged. No new fractures. Prevertebral soft tissue swelling has complet jesus resolved. Impression: Subacute C1 ring fracture and type II dens fracture are unchanged in alignment since 2015.
== END ==
LOC: FIMAGING 09:16
PROVIDERS: ATTEND Physician Assistant Surgical
DX: S12.000D Unspecified displaced fracture of first cervical vertebra, subsequent encounter for fracture with routine healing (principal)

== ENCOUNTER → 2016-07-06 | Outpatient (CLI) | payer OTHER | LOC: FIMAGING 14:04 | PROVIDERS: ATTEND Physician Assistant Medical | DX: R41.3 Other amnesia (principal); R41.89 Other symptoms and signs involving cognitive functions and awareness; R93.0 Abnormal findings on diagnostic imaging of skull and head, not elsewhere classified ==

== ENCOUNTER → 2016-07-09 | Outpatient (CLI) | payer OTHER | LOC: BHFA 10:45 | PROVIDERS: ATTEND Internal Medicine Cardiovascular Disease | DX: I50.9 Heart failure, unspecified (principal); R60.9 Edema, unspecified ==

== ENCOUNTER → 2016-07-16 | Outpatient (CLI) | payer OTHER ==
--- NOTE | 2016-07-16 15:09 | CPEEG ---
[f rep st] ELECTROENCEPHALOGRAM DATE OF STUDY: 07/16/2016 INTERPRETATION: Normal EEG during wakefulness and sleep. There are no potentially epileptogenic ab normalities present on the recording. REPORT: This EEG contains 10 Hz alpha to the posterior head regions. There was no abnormal activat ion at rest, during photic stimulation, or hyperventilation. The patient became drowsy and fell asl eep during the study. There was no abnormal activation during drowsiness, sleep, or during times of arousal. /[id number]/MODL
== END ==
LOC: FCPNEURO 12:42
PROVIDERS: ATTEND Physician Assistant Medical
DX: R41.3 Other amnesia (principal); R41.89 Other symptoms and signs involving cognitive functions and awareness

== ENCOUNTER → 2016-07-26 | Outpatient (CLI) | payer OTHER | LOC: FIMAGING 08:24 | PROVIDERS: ATTEND Neurological Surgery | DX: S12.000D Unspecified displaced fracture of first cervical vertebra, subsequent encounter for fracture with routine healing (principal); S12.100D Unspecified displaced fracture of second cervical vertebra, subsequent encounter for fracture with routine healing ==

== ENCOUNTER → 2016-10-28 | Outpatient (CLI) | payer OTHER | LOC: FIMAGING 06:36 | PROVIDERS: ATTEND Neurological Surgery | DX: S12.100A Unspecified displaced fracture of second cervical vertebra, initial encounter for closed fracture (principal); X58.XXXA Exposure to other specified factors, initial encounter ==

== ENCOUNTER → 2017-04-26 | Outpatient (CLI) | payer OTHER | LOC: FIMAGING 14:53 | PROVIDERS: ATTEND Physician Assistant Surgical | DX: M43.13 Spondylolisthesis, cervicothoracic region (principal) ==

== ENCOUNTER 2017-05-28 18:25 | Emergency (ER) | payer OTHER ==
--- NOTE | 2017-05-28 18:33 | EDPHY ---
H & P Time Seen by Provider: 05/28/17 18:32 HPI/ROS: CHIEF COMPLAINT: HISTORY OF PRESENT ILLNESS: [Location, Duration, Severity, Quality, Context, Timing Modifying Factors, Associated S&S] REVIEW OF SYSTEMS: Aside from elements discussed in the HPI, a comprehensive 10-point review of systems was reviewed and is negative. Constitutional: No fever, no chills Eyes: No visual changes ENT: No sore throat Respiratory: No cough, no shortness of breath Cardiac: No chest pain Gastrointestinal: No nausea, no vomiting, no abdominal pain Genitourinary: No hematuria, no dysuria Musculoskeletal: No leg pain or swelling Skin: No rash Neurological: No headache, no numbness, no weakness Psychiatric: No depression Adult Physical General Appearance: Alert, pleasant Eyes: Pupils equal and round, no conjunctival pallor or injection ENT, Mouth: Mucous membranes moist Neck: Normal inspection Respiratory: Lungs are clear to auscultation Cardiovascular: Regular rate and rhythm Gastrointestinal: Abdomen is soft and non-tender Neurological: A&O, nonfocal Skin: Warm and dry, no rash Extremities: Nontender, no pedal edema Psychiatric: Mood and affect normal Smoking Status: Never smoked Allergies/Adverse Reactions: zolpidem tartrate [From Ambien] Allergy (Verified 05/09/16 17:22) zolpidem tartrate Allergy (Unknown, Uncoded 03/10/17 15:07) Home Medications: Medication Instructions Recorded Niacin [Niacin 500 mg (*)] 750 mg PO DAILY 05/05/16 [place]-3 Fatty Acids [Fish Oil 1000 1,000 mg PO DAILY 05/05/16 mg (*)] Bacitracin Ointment 1 sedrick TP BID #0 pkt 05/09/16 Acetaminophen [Tylenol 325mg (*)] 325 - 650 mg PO Q4HRS PRN #0 tab 05/15/16 Thyroid [[place] Thyroid 60 MG (*)] 45 mg PO DAILY10 #30 tab 05/15/16 Departure - Departure Referrals: Patient,NotPresent [Primary Care Provider] - As per Instructions Report Scribed for: Amy Dean Report Scribed by: Rachel Johns Date of Report: 05/28/17 Time of Report: 18:33 Physician Review and Approval Statement: 05/28/17 18:33 Portions of this note were transcribed by a medical billing coordinator. I personally performed a history, physical exam, medical decision making, and confirmed accuracy of information the transcribed note.
--- NOTE | 2017-05-28 18:36 | EDPHY ---
H & P Time Seen by Provider: 05/28/17 18:32 HPI/ROS: Chief complaint. Fall HPI. Patient is an 81-year-old male with history of dementia. He apparently walked away from his home earlier today. He has been the subjective a police searched through the day. Bystander witnessed the paced and slip and fall on the ice striking his left face. They called 911 and it is the person that [place] [employer] has been looking for. Patient denies any other injuries chest other than to his face. No neck pain, chest pain, shortness of breath. No injury to arms legs. Patient is somewhat agitated at times ROS Constitutional. no fever/chills, no weakness Eyes. no problems with vision ENT. Left facial injury Cardiovascular. no chest pain Respiratory. no shortness of breath, no cough Abdominal. no abdominal pain, no nausea/vomiting, no diarrhea . no problems urinating MS. no calf pain/swelling, no neck/back pain, no joint pain Skin. no rash Lymph. no swollen glands Neuro. no headache, no dizziness, no difficulty walking or with speech Past Medical/Surgical History: Dementia Social History: , nonsmoker, no alcohol Smoking Status: Never smoked Physical Exam: General Appearance: Alert well-developed male mild distress vitals are stable Eyes: Pupils equal and round no pallor or injection. ENT, no oral pharyngeal or dental trauma. Left facial abrasion and swelling both above and below the left eye Respiratory: There are no retractions, lungs are clear to auscultation. Cardiovascular: Regular rate and rhythm. Gastrointestinal: Abdomen is soft and nontender, no masses, bowel sounds normal. Neurological: Awake and alert, sensory and motor exams grossly normal. Skin: Warm and dry, no rashes. Musculoskeletal: Neck is supple nontender. Extremities symmetrical, full range of motion. Psychiatric: Patient is oriented X 1, there is occasional agitation. Constitutional: Initial Vital Signs Temperature (C) 36.6 C 05/28/17 18:35 Heart Rate 86 05/28/17 18:35 Respiratory Rate 17 05/28/17 18:35 Blood Pressure 132/68 H 05/28/17 18:35 O2 Sat (%) 98 05/28/17 18:35 O2 Delivery Mode Room Air Allergies/Adverse Reactions: zolpidem tartrate [From Ambien] Allergy (Verified 05/28/17 18:34) zolpidem tartrate Allergy (Unknown, Uncoded 03/10/17 15:07) Home Medications: Medication Instructions Recorded Niacin [Niacin 500 mg (*)] 750 mg PO DAILY 05/05/16 [place]-3 Fatty Acids [Fish Oil 1000 1,000 mg PO DAILY 05/05/16 mg (*)] Bacitracin Ointment 1 sedrick TP BID #0 pkt 05/09/16 Acetaminophen [Tylenol 325mg (*)] 325 - 650 mg PO Q4HRS PRN #0 tab 05/15/16 Thyroid [[place] Thyroid 60 MG (*)] 45 mg PO DAILY10 #30 tab 05/15/16 Medical Decision Making - Diagnostics Imaging Results: Imaging Impressions Head CT 05/28/17 18:34 Impression: 1. No acute intracranial findings. 2. Diffuse cerebral atrophy with periventricular and subcortical low attenuation consistent with chronic microvascular ischemic gliosis. 3. Limited visualization of known anterior and posterior C1 fractures, which appear unfused in the visualized extent. 4. Limited visualization of the known odontoid fracture. 5. Additional findings as above. Findings discussed with Dr. Edgardo Garay on 05/28/2017 at 19:17. Cervical Spine CT 05/28/17 19:24 Impression: 1. Increase in displacement of the dens fracture now measuring about 4 mm ( previously about 1 to 2 mm). 2. Partial healing of the anterior and posterior ring of the C1 fracture. 3. Stable 7-8 mm of posterior subluxation of C1 on C2 as well as stable subluxations measuring 2 to 3 mm from C2 to C3 through C6-C7. Findings discussed with Edgardo Garay M.D. at 20:13 hour, 05/28/2017. Head CT shows no intracranial findings. Cervical spine CT shows some increased displacement in the dens. ED Course/Re-evaluation: Re-evaluation at 7:20 p.m.. Patient is stable. I did not obtain the history initially that the patient had a neck fracture that is still somewhat unstable even though he has been released by Dr. constance love in April. I discussed this with the patient and his . And we agreed that we will recent CT his neck. I consulted and discussed the case with who reviewed the CT and he feels that as long as the patient does not have neck pain that he is comfortable with patient going home and seeing the patient in the office. Re-evaluation 8:45 p.m.. Patient is stable. No neck pain. Differential Diagnosis: Fall that is unwitnessed but no evidence for intracranial injury or facial fractures. 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 Patient has no neck pain and he is neurologically intact. - Data Points Medications Given: Discontinued Medications Tetracaine/Epinephrine/Lidocaine (Let Gel Topical) 1 ea TP EDNOW ONE Stop: 05/28/17 20:36 Last Admin: 05/28/17 20:39 Dose: 1 ea Departure - Departure Disposition: Home, Routine, Self-Care Clinical Impression: C1 cervical fracture Qualifiers: Encounter type: subsequent encounter Fracture type: closed Fracture morphology : unspecified fracture morphology Fracture alignment: displaced Fracture healing : with delayed healing Qualified Code(s): S12.000G - Unspecified displaced fracture of first cervical vertebra, subsequent encounter for fracture with delayed healing Condition: Fair Instructions: Abrasion (ED) Additional Instructions: Ice to sore area face next 24-48 hours. Return for neck pain, focal weakness paresthesias. Follow up with Dr. Mann in the office for further evaluation of your neck fracture Referrals: Patient,NotPresent [Unknown] - As per Instructions Zane Mann MD [Primary Care Provider] - As per Instructions
[2017-05-28] MEDS ORDERED: LET GEL TOPICAL 1 EA SYR TP ONE (20:35)
[2017-05-28 21:24] VITALS: BP 110/53; PULSE 67; RESP 16; TEMP 97.7; O2SAT 94
== END 2017-05-28 21:23 | disposition home or self-care (01) ==
LOC: EDUNIT#
DX: S12.000G Unspecified displaced fracture of first cervical vertebra, subsequent encounter for fracture with delayed healing (principal); W01.198A Fall on same level from slipping, tripping and stumbling with subsequent striking against other object, initial encounter; Y99.8 Other external cause status; Y93.01 Activity, walking, marching and hiking